=== PATIENT | female | born 1960 | race Caucasian/White ===

== ENCOUNTER 2017-07-13 14:18 | Outpatient (CLI) | payer MEDICARE, OTHER ==
--- NOTE | 2017-07-14 13:31 | OP Clinic Progress Note ---
REASON FOR VISIT: This 56-year-old lady is seen after she made her own appointment for an additional opinion regarding her throat. She has upper airway issues or problems. She saw an Ear, Nose, and Throat doctor in [place]. In 2014, she had a history of losing her voice and long-term laryngitis. Apparently, her voice was gone for 4 weeks. She said she was under a significant amount of stress. She entered the hospital after having some more acute airway issues after using a soothing lavender lotion on her neck. Studies included a chest x -ray and a CT that suggested possible COPD. Pulmonary function tests, which she had in 2016 and then in again in 2017, are both normal. The patient's medications include Klonopin. The patient has a thin body habitus. Her voice is initially pathologically soft. She also has a certain amount of tension in her voice and the voice is almost a very soft falsetto-type of voice and then got a little stronger as the interview went along. Palpation of her neck would note increased tension in the strap muscles of the larynx. There is no palpable abnormal masses. I used a flexible fiberoptic laryngoscopy and she really was not pleased with me looking into her nose, but I did get at least an adequate view of the larynx transorally. Again, she is fearful of this. Again, I got at least a brief look and see both vocal cords abduct and adduct. There is no evident mass or tumor. There is no paralysis. Vocal cords appear to be adequately pink with no leukoplakia. Although I am not sure of any of the issues that have transpired in the past. Overall, there appears to be a significant amount of vocal tension and palpable laryngeal tension by my ear estimating her, and listening her voice, again, there is vocal tension. She seems to have had some episodes of laryngospasm which would go along with this and consistent in this regard in the past. PLAN: I suggested that the best treatment would be to see a local speech pathologist. I had to write down a diagnosis, but using it more as a descriptive term, I simply have written vocal tension and leave it up to the speech pathologist in treating her in this regard. cc: Dr. Kostas BRADFORD
== END 2017-07-13 14:20 ==
LOC: ENT 14:18
PROVIDERS: ATTEND Otolaryngology
DX: J38.3 Other diseases of vocal cords (principal)
CPT/HCPCS: 31575; G0463